=== PATIENT | male | born 1985 | race Caucasian/White ===

== ENCOUNTER 2025-01-22 15:44 | Emergency (ER) | payer SELFPAY ==
[~2025-01-22] VITALS: Ht 185.4 cm; Wt 70.0 kg
[2025-01-22 15:53] VITALS: BP 124/79; PULSE 76; RESP 16; TEMP 36.9; O2SAT 99
[2025-01-22] MEDS ORDERED: NALOXONE HCL 0.4MG/ML 1ML VIAL IV ONE (16:15)
== END 2025-01-22 16:48 | disposition left against medical advice (07) ==
LOC: ER 15:44 → CANBEDREQ 17:04 → CMPBEDREQ 23:11
DX: T65.91XA Toxic effect of unspecified substance, accidental (unintentional), initial encounter (principal); Z53.21 Procedure and treatment not carried out due to patient leaving prior to being seen by health care provider; X58.XXXA Exposure to other specified factors, initial encounter; Y93.89 Activity, other specified; Y92.89 Other specified places as the place of occurrence of the external cause; Y99.8 Other external cause status